=== PATIENT | male | born 1985 | race Two or more races ===

== ENCOUNTER 2017-04-24 16:08 | Inpatient (IN) | payer OTHER ==
[2017-04-24 17:04] VITALS: BMI 22.7
--- NOTE | 2017-04-24 20:47 | HP ---
COWS - Scale Resting Pulse: 0= [place] 80 or Below Sweatin= Chills/Flushing Restless Observation: 5= Unable to Sit Still Pupil Size: 1= Pupils >than Normal Bone or Joint Aches: 4=Acute Joint/Muscle Pain Runny Nose/ Eye Tearin= Runny Nose/Eyes GI Upset > 30mins: 2= Nausea/Diarrhea Tremor Observation: 4= Gross Tremor/Twitching Yawning Observation: 1= 1-2x During Session Anxiety or Irritability: 2=Irritable/Anxious Goose Flesh Skin: 0=Smooth Skin COWS Score: 22 CIWA Score - CIWA Score Nausea/Vomitin Muscle Tremors: 4-Moderate,w/Arms Extend Anxiety: 4-Mod. Anxious/Guarded Agitation: 4-Moderately Restless Paroxysmal Sweats: 3 Orientation: 3-Disoriented Date>2 days Tacttile Disturbances: 1-Very Mild Itch/Numbness Auditory Disturbances: 1-Very Mild Visual Disturbances: 1-Very Mild Sensitivity Headache: 2-Mild CIWA-Ar Total Score: 26 Admission [facility] - HPI Chief Complaint: seeking detox txment for withdrawal sx's Allergies/Adverse Reactions: Allergies Allergy/AdvReac Type Severity Reaction Status Date / Time No Known Allergies Allergy Verified 04/24/17 20:41 History of Present Illness: 31 y.o. MALE W/ EXTENSIVE HX/O OPIOID, ESTRELLA, AND ALCOHOL DEPENDENCE ADMITTED TO DETOX TXMENT. CLIENT IS SELF REFERRED. REPORTS LONGEST CLEAN TIME 8 MONTHS WHILE ON SBX MGMT/ Exam Limitations: No Limitations - Ebola screening Have you traveled outside of the country in the last 21 days: No Have you had contact with anyone from an Ebola affected area: No Have you been sick,other than usual withdrawal symptoms: No Do you have a fever: No - Review of Systems Constitutional: Chills, Loss of Appetite, Malaise, Night Sweats, Unintentional Wgt. Loss, Other (YAWNING) EENT: reports: Tearing, Nose Congestion, Dental Problems (MISSING TEETH), Other (RUNNY NOSE) Respiratory: reports: No Symptoms reported Cardiac: reports: No Symptoms Reported GI: reports: Nausea, Poor Appetite : reports: No Symptoms Reported Musculoskeletal: reports: Back Pain, Joint Pain Integumentary: reports: No Symptoms Reported Neuro: reports: No Symptoms reported Endocrine: reports: No Symptoms Reported Hematology: reports: No Symptoms Reported Psychiatric: reports: Anxious Other Systems: Reviewed and Negative Patient History - Patient Medical History Hx Anemia: No Hx Asthma: No Hx Chronic Obstructive Pulmonary Disease (COPD): No Hx Cancer: No Hx Cardiac Disorders: No Hx Congestive Heart Failure: No Hx Hypertension: No Hx Hypercholesterolemia: No Hx Pacemaker: No HX Cerebrovascular Accident: No Hx Seizures: No Hx Dementia: No Hx Diabetes: No Hx Gastrointestinal Disorders: No Hx Liver Disease: No Hx Genitourinary Disorders: No Hx Sexually Transmitted Disorders: No Hx Renal Disease (ESRD): No Hx Thyroid Disease: No Hx Human Immunodeficiency Virus (HIV): No Hx Hepatitis C: Yes (NO TXMENT) Hx Depression: No Hx Suicide Attempt: No Hx Bipolar Disorder: No Hx Schizophrenia: No Other Medical History: DENIES - Patient Surgical History Past Surgical History: No - PPD History Previous Implant?: Yes Documented Results: Negative w/o proof Implanted On Prior [facility] Admission?: No PPD to be Administered?: Yes - Smoking Cessation Smoking history: Current every day smoker Have you smoked in the past 12 months: Yes Aproximately how many cigarettes per day: 15 Cigars Per Day: 0 Hx Chewing Tobacco Use: No Initiated information on smoking cessation: Yes - Substance & Tx. History Hx Alcohol Use: Yes Hx Substance Use: Yes Substance Use Type: Alcohol, Heroin, Tranquilizers (XANAX) Hx Substance Use Treatment: Yes ([facility]) - Substances Abused COGNAC Route: Oral Frequency: 3-6 times per week Amount used: 8 SHOTS Age of first use: 12 Date of Last Use: 04/23/17 HEROIN Route: Injection Frequency: Daily Amount used: 12 BAGS Age of first use: 17 Date of Last Use: 04/23/17 XANAX Route: Oral Frequency: Daily Amount used: 6MG Age of first use: 29 Date of Last Use: 04/23/17 COCAINE Route: Injection Frequency: 3-6 times per week Amount used: $20 Age of first use: 14 Date of Last Use: 04/23/17 Family Disease History - Family Disease History Family Disease History: Other: Father (ALCOHOLISM) Admission Physical Exam [facility] - Vital Signs Vital Signs: Vital Signs - 24 hr 04/24/17 17:00 Temperature 98.8 F Pulse Rate 60 Respiratory 18 Rate Blood Pressure 130/73 - Physical General Appearance: Yes: Appropriately Dressed, Mild Distress, Tremorous, Anxious, Other (YAWNING) HEENTM: Yes: EOMI, Normocephalic, Normal Voice, Pharynx Normal, Other (RUNNY NOSE WATERY EYES) Respiratory: Yes: Chest Non-Tender, Lungs Clear, Normal Breath Sounds, No Respiratory Distress, No Accessory Muscle Use Neck: Yes: No masses,lesions,Nodules, Supple, Trachea in good position Breast: Yes: Breast Exam Deferred Cardiology: Yes: Regular Rhythm, Regular Rate, S1, S2 Abdominal: Yes: Normal Bowel Sounds, Non Tender, Soft Genitourinary: Yes: Within Normal Limits Back: Yes: Normal Inspection Musculoskeletal: Yes: full range of Motion, Gait Steady Extremities: Yes: Normal Range of Motion, Non-Tender, Tremors Neurological: Yes: Alert, Motor Strength 5/5 Integumentary: Yes: Normal Color, Dry, Warm, Track [place] Lymphatic: Yes: Within Normal Limits - Diagnostic (1) Alcohol dependence with uncomplicated withdrawal Current Visit: Yes Status: Acute (2) Opioid dependence with withdrawal Current Visit: Yes Status: Acute (3) Cocaine dependence, uncomplicated Current Visit: Yes Status: Acute (4) Nicotine dependence Current Visit: Yes Status: Acute (5) Hep C w/o coma, chronic Current Visit: Yes Status: Acute Cleared for Admission [facility] - Detox or Rehab [facility] Level of Care: Medically Managed Detox Regimen/Protocol: Methadone/Valium [facility] Breath Alcohol Content Breath Alcohol Content: 0 Urine Drug Screen - Results Drug Screen Negative: No Urine Drug Screen Results: EYAL-Cocaine, OPI-Opiates, BZO-Benzodiazepines
[2017-04-24] MEDS ORDERED: MAGNESIUM CITRATE 300 ML BOTTLE PO PRN (20:57)
[2017-04-24] MEDS ORDERED: guaiFENesin/D-METHORPHAN HB 10 ML UNIT-DOSE CUPS PO PRN (20:57)
[2017-04-24] MEDS ORDERED: METHADONE HCL 10 MG TABLET (FOR DETOX USE ONLY) PO ONE ×2 (20:57→23:00)
[2017-04-24] MEDS ORDERED: MAGNESIUM HYDROX 2400MG/30ML ORAL SUSPENSION 30 ML CUP PO PRN (20:57)
[2017-04-24] MEDS ORDERED: P-EPHED 60MG/TRIPROLIDI 2.5MG TABLET PO PRN (20:57)
[2017-04-24] MEDS ORDERED: MAG HYDROX/AL HYDROX/SIMETH 30 ML UNIT-DOSE CUP PO PRN (20:57)
[2017-04-24] MEDS ORDERED: LOPERAMIDE HCL 2 MG CAPSULE PO PRN (20:57)
[2017-04-24] MEDS ORDERED: IBUPROFEN 400 MG TABLET (FP) PO PRN (20:57)
[2017-04-24] MEDS ORDERED: diazePAM 5 MG TABLET PO ONE (20:57)
[2017-04-24] MEDS ORDERED: MENTHOL/PHENOL 1 EACH UD MM PRN (20:57)
[2017-04-24] MEDS ORDERED: ACETAMINOPHEN 325 MG TABLET (FP) PO PRN (20:57)
[2017-04-24] MEDS: NICOTINE 21 MG/24 HOURS TOPICAL PATCH TD SCH (22:00)
[2017-04-24] MEDS: THIAMINE HCL 100 MG TABLET (FP) PO SCH (22:56)
[2017-04-24] MEDS: diazePAM 5 MG TABLET PO SCH (22:57)
[2017-04-24 23:08] LABS: URINE APPEARANCE CLEAR; URINE BILIRUBIN NEGATIVE (NEGATIVE); URINE BLOOD NEGATIVE (NEGATIVE); URINE COLOR STRAW; URINE GLUCOSE (UA) NEGATIVE (NEGATIVE); URINE KETONE NEGATIVE (NEGATIVE); URINE NITRITE NEGATIVE (NEGATIVE); URINE PROTEIN NEGATIVE (NEGATIVE); URINE UROBILINOGEN NEGATIVE mg/dL (0.2-1.0)
[2017-04-25] MEDS: diazePAM 5 MG TABLET PO SCH ×3 (05:37→22:09)
[2017-04-25 08:44] LABS: URINE LEUK ESTERASE Negative (NEGATIVE)
[2017-04-25] MEDS ORDERED: METHADONE HCL 10 MG TABLET (FOR DETOX USE ONLY) PO SCH (10:00)
[2017-04-25 10:17] LABS: MCH 28.5 pg (25.7-33.7); MCHC 32.3 g/dl (32.0-35.9); MEAN CELL VOLUME 88.3 fl (80-96); MEAN PLT VOLUME 8.5 fl (7.5-11.1); PLATELET COUNT 246 K/MM3 (134-434); RDW 14.9 % (11.9-15.9); WHITE BLOOD COUNT 8.2 K/mm3 (4.0-10.0)
[2017-04-25 10:27] LABS: ALBUMIN 3.4 g/dl (3.4-5.0); ANION GAP 7 (8-16); CALCIUM 8.6 mg/dL (8.5-10.1); CO2 27 mmol/L (21-32); GLUCOSE,RANDOM 109 mg/dL (74-106); SGOT/AST 17 U/L (15-37); SGPT/ALT 30 U/L (12-78)
[2017-04-25] MEDS: PRENATAL VITAMINS W/ FOLIC ACID TABLET (FP) PO SCH (10:27)
[2017-04-25] MEDS: NICOTINE 21 MG/24 HOURS TOPICAL PATCH TD SCH (10:27)
[2017-04-25] MEDS: NICOTINE POLACRILEX 2 MG GUM BUC PRN ×2 (10:28→17:25)
[2017-04-25] MEDS: diazePAM 5 MG TABLET PO PRN ×2 (10:29→17:23)
[2017-04-25 10:30] LABS: ALK PHOS 50 U/L (45-117); BILIRUBIN,TOTAL 0.4 mg/dL (0.2-1.0); TOT PROT 6.9 g/dl (6.4-8.2)
--- NOTE | 2017-04-25 11:33 | PN ---
[facility] CIWA - CIWA Score Nausea/Vomitin-No Nausea/No Vomiting Muscle Tremors: 4-Moderate,w/Arms Extend Anxiety: 4-Mod. Anxious/Guarded Agitation: 4-Moderately Restless Paroxysmal Sweats: 1-Minimal Palms Moist Orientation: 0-Oriented Tacttile Disturbances: 3-Moderate Itch/Numb/Burn Auditory Disturbances: 0-None Visual Disturbances: 0-None Headache: 0-None Present CIWA-Ar Total Score: 16 [facility] COWS - Scale Resting Pulse: 1= [place] 81-100 Sweatin= Chills/Flushing Restless Observation: 3= Extraneous Movement Pupil Size: 0= Normal to Room Light Bone or Joint Aches: 4=Acute Joint/Muscle Pain Runny Nose/ Eye Tearin= Nasal Congestion GI Upset > 30mins: 1= Stomach Cramp Tremor Observation of Outstretched Hands: 1= Tremor [place], Not Seen Yawning Observation: 1= 1-2x During Session Anxiety or Irritability: 2=Irritable/Anxious Goose Flesh Skin: 0=Smooth Skin COWS Score: 15 [facility] Progress Note (SOAP) Subjective: ANXIETY, SWEATS,IRRITABILITY, Objective: 04/25/17 11:33 Vital Signs Temperature 95.3 F L 04/25/17 09:20 Pulse Rate 93 H 04/25/17 09:20 Respiratory Rate 20 04/25/17 09:20 Blood Pressure 117/77 04/25/17 09:20 O2 Sat by Pulse Oximetry (%) Laboratory Last Values WBC 8.2 K/mm3 (4.0-10.0) 04/25/17 07:00 RBC 4.30 M/mm3 (4.00-5.60) 04/25/17 07:00 Hgb 12.3 GM/dL (11.7-16.9) 04/25/17 07:00 Hct 37.9 % (35.4-49) 04/25/17 07:00 MCV 88.3 fl (80-96) 04/25/17 07:00 MCH 28.5 pg (25.7-33.7) 04/25/17 07:00 MCHC 32.3 g/dl (32.0-35.9) 04/25/17 07:00 RDW 14.9 % (11.9-15.9) 04/25/17 07:00 Plt Count 246 K/MM3 (134-434) 04/25/17 07:00 MPV 8.5 fl (7.5-11.1) 04/25/17 07:00 Sodium 140 mmol/L (136-145) 04/25/17 07:00 Potassium 4.0 mmol/L (3.5-5.1) 04/25/17 07:00 Chloride 106 mmol/L (98-107) 04/25/17 07:00 Carbon Dioxide 27 mmol/L (21-32) 04/25/17 07:00 Anion Gap 7 (8-16) L 04/25/17 07:00 BUN 15 mg/dL (7-18) 04/25/17 07:00 Creatinine 1.0 mg/dL (0.7-1.3) 04/25/17 07:00 Creat Clearance w eGFR > 60 (>60) 04/25/17 07:00 Random Glucose 109 mg/dL (74-106) H 04/25/17 07:00 Calcium 8.6 mg/dL (8.5-10.1) 04/25/17 07:00 Total Bilirubin 0.4 mg/dL (0.2-1.0) 04/25/17 07:00 AST 17 U/L (15-37) 04/25/17 07:00 ALT 30 U/L (12-78) 04/25/17 07:00 Alkaline Phosphatase 50 U/L (45-117) 04/25/17 07:00 Total Protein 6.9 g/dl (6.4-8.2) 04/25/17 07:00 Albumin 3.4 g/dl (3.4-5.0) 04/25/17 07:00 Urine Color Straw 04/24/17 22:00 Urine Appearance Clear 04/24/17 22:00 Urine pH 8.0 (5.0-8.0) 04/24/17 22:00 Ur Specific [place] 1.015 (1.005-1.025) 04/24/17 22:00 Urine Protein Negative (NEGATIVE) 04/24/17 22:00 Urine Glucose (UA) Negative (NEGATIVE) 04/24/17 22:00 Urine Ketones Negative (NEGATIVE) 04/24/17 22:00 Urine Blood Negative (NEGATIVE) 04/24/17 22:00 Urine Nitrite Negative (NEGATIVE) 04/24/17 22:00 Urine Bilirubin Negative (NEGATIVE) 04/24/17 22:00 Urine Urobilinogen Negative mg/dL (0.2-1.0) 04/24/17 22:00 Ur Leukocyte Esterase Negative (NEGATIVE) 04/24/17 22:00 RPR Titer Nonreactive (NONREACTIVE) 04/25/17 07:00 Assessment: 04/25/17 11:33 WITHDRAWAL SX Plan: CONTINUE DETOX
--- NOTE | 2017-04-25 12:30 | CONSULT ---
[facility] Psychiatric Consult - Data Date of interview: 04/25/17 Admission source: [facility] Identifying data: First admission to [facility] for this 31 y/o male seeking detox treatment on for alcohol,cocaine,heroin,marihuana and xanax dependence.Patient is single,a father of two,domiciled,unemployed and supported on food stamps. Substance Abuse History: Discussed in this session.patient confirmed these addictions. Smoking Cessation. Smoking history: Current every day smoker. Have you smoked in the past 12 months: Yes. Aproximately how many cigarettes per day: 15. Cigars Per Day: 0. Hx Chewing Tobacco Use: No. Initiated information on smoking cessation: Yes. - Substance & Tx. History. Hx Alcohol Use: Yes. Hx Substance Use: Yes. Substance Use Type: Alcohol, Heroin, Tranquilizers (XANAX). Hx Substance Use Treatment: Yes ([facility]). - Substances Abused. COGNAC. Route: Oral. Frequency: 3-6 times per week. Amount used: 8 SHOTS. Age of first use: 12. Date of Last Use: 04/23/17. HEROIN. Route: Injection. Frequency: Daily. Amount used: 12 BAGS. Age of first use: 17. Date of Last Use: 04/23/17. XANAX. Route: Oral. Frequency : Daily. Amount used: 6MG. Age of first use: 29. Date of Last Use: 04/23/17. COCAINE. Route: Injection. Frequency: 3-6 times per week. Amount used: $ 20. Age of first use: 14. Date of Last Use: 04/23/17 Medical History: Hepatitis C. Psychiatric History: Patient denies. Physical/Sexual Abuse/Trauma History: Patient denies. Additional Comment: Urine Drug Screen Results: EYAL-Cocaine, OPI-Opiates, BZO- Benzodiazepines.Noted. Mental Status Exam - Mental Status Exam Alert and Oriented to: Time, Place, Person Cognitive Function: Good Patient Appearance: Well Groomed Mood: Withdrawn Affect: Normal Range Patient Behavior: Fatigued, Cooperative Speech Pattern: Clear Voice Loudness: Normal Thought Process: Goal Oriented Thought Disorder: Not Present Hallucinations: Denies Suicidal Ideation: Denies Homicidal Ideation: Denies Insight/Judgement: Poor Sleep: Well Appetite: Good Muscle strength/Tone: Normal Gait/Station: Normal Psychiatric Findings - Problem List ([place] 1, 2,3) (1) Alcohol dependence with uncomplicated withdrawal Current Visit: Yes Status: Acute (2) Cocaine dependence, uncomplicated Current Visit: Yes Status: Acute (3) Opioid dependence with withdrawal Current Visit: Yes Status: Acute (4) Nicotine dependence Current Visit: Yes Status: Acute Qualifiers: Nicotine product type: cigarettes Substance use status: in withdrawal Qualified Code(s): F17.213 - Nicotine dependence, cigarettes, with withdrawal; F17.213 - Nicotine dependence, cigarettes, with withdrawal (5) Hep C w/o coma, chronic Current Visit: Yes Status: Acute - Initial Treatment Plan Initial Treatment Plan: Psychoeducation.Detoxification.Observation.
[2017-04-25 14:21] LABS: HIV 1 & 2 AB NEGATIVE; HIV 1 AGp24 NEGATIVE
[2017-04-25] MEDS: THIAMINE HCL 100 MG TABLET (FP) PO SCH (22:09)
[2017-04-25] MEDS: diphenhydrAMINE HCL 50 MG CAPSULE PO PRN (22:09)
[2017-04-26] MEDS: diazePAM 5 MG TABLET PO PRN ×3 (07:31→18:45)
[2017-04-26] MEDS: PRENATAL VITAMINS W/ FOLIC ACID TABLET (FP) PO SCH (10:26)
[2017-04-26] MEDS: METHADONE HCL 5 MG TABLET (FOR DETOX USE ONLY) PO SCH (10:26)
[2017-04-26] MEDS: diazePAM 5 MG TABLET PO SCH ×2 (10:26→22:08)
[2017-04-26] MEDS: NICOTINE 21 MG/24 HOURS TOPICAL PATCH TD SCH (10:27)
[2017-04-26] MEDS: NICOTINE POLACRILEX 2 MG GUM BUC PRN ×3 (10:28→17:28)
--- NOTE | 2017-04-26 10:34 | PN ---
[facility] CIWA - CIWA Score Nausea/Vomitin-No Nausea/No Vomiting Muscle Tremors: 4-Moderate,w/Arms Extend Anxiety: 4-Mod. Anxious/Guarded Agitation: 4-Moderately Restless Paroxysmal Sweats: 1-Minimal Palms Moist Orientation: 0-Oriented Tacttile Disturbances: 3-Moderate Itch/Numb/Burn Auditory Disturbances: 0-None Visual Disturbances: 0-None Headache: 0-None Present CIWA-Ar Total Score: 16 S COWS - Scale Resting Pulse: 1= [place] 81-100 Sweatin= Chills/Flushing Restless Observation: 3= Extraneous Movement Pupil Size: 0= Normal to Room Light Bone or Joint Aches: 4=Acute Joint/Muscle Pain Runny Nose/ Eye Tearin= Nasal Congestion GI Upset > 30mins: 0= None Tremor Observation of Outstretched Hands: 1= Tremor [place], Not Seen Yawning Observation: 1= 1-2x During Session Anxiety or Irritability: 2=Irritable/Anxious Goose Flesh Skin: 0=Smooth Skin COWS Score: 14 [facility] Progress Note (SOAP) Subjective: ANXIETY,SWEATS/CHILLS,IRRITABILITY,FATIGUE. Objective: 04/26/17 10:34 Laboratory Last Values WBC 8.2 K/mm3 (4.0-10.0) 04/25/17 07:00 RBC 4.30 M/mm3 (4.00-5.60) 04/25/17 07:00 Hgb 12.3 GM/dL (11.7-16.9) 04/25/17 07:00 Hct 37.9 % (35.4-49) 04/25/17 07:00 MCV 88.3 fl (80-96) 04/25/17 07:00 MCH 28.5 pg (25.7-33.7) 04/25/17 07:00 MCHC 32.3 g/dl (32.0-35.9) 04/25/17 07:00 RDW 14.9 % (11.9-15.9) 04/25/17 07:00 Plt Count 246 K/MM3 (134-434) 04/25/17 07:00 MPV 8.5 fl (7.5-11.1) 04/25/17 07:00 Sodium 140 mmol/L (136-145) 04/25/17 07:00 Potassium 4.0 mmol/L (3.5-5.1) 04/25/17 07:00 Chloride 106 mmol/L (98-107) 04/25/17 07:00 Carbon Dioxide 27 mmol/L (21-32) 04/25/17 07:00 Anion Gap 7 (8-16) L 04/25/17 07:00 BUN 15 mg/dL (7-18) 04/25/17 07:00 Creatinine 1.0 mg/dL (0.7-1.3) 04/25/17 07:00 Creat Clearance w eGFR > 60 (>60) 04/25/17 07:00 Random Glucose 109 mg/dL (74-106) H 04/25/17 07:00 Calcium 8.6 mg/dL (8.5-10.1) 04/25/17 07:00 Total Bilirubin 0.4 mg/dL (0.2-1.0) 04/25/17 07:00 AST 17 U/L (15-37) 04/25/17 07:00 ALT 30 U/L (12-78) 04/25/17 07:00 Alkaline Phosphatase 50 U/L (45-117) 04/25/17 07:00 Total Protein 6.9 g/dl (6.4-8.2) 04/25/17 07:00 Albumin 3.4 g/dl (3.4-5.0) 04/25/17 07:00 Urine Color Straw 04/24/17 22:00 Urine Appearance Clear 04/24/17 22:00 Urine pH 8.0 (5.0-8.0) 04/24/17 22:00 Ur Specific [place] 1.015 (1.005-1.025) 04/24/17 22:00 Urine Protein Negative (NEGATIVE) 04/24/17 22:00 Urine Glucose (UA) Negative (NEGATIVE) 04/24/17 22:00 Urine Ketones Negative (NEGATIVE) 04/24/17 22:00 Urine Blood Negative (NEGATIVE) 04/24/17 22:00 Urine Nitrite Negative (NEGATIVE) 04/24/17 22:00 Urine Bilirubin Negative (NEGATIVE) 04/24/17 22:00 Urine Urobilinogen Negative mg/dL (0.2-1.0) 04/24/17 22:00 Ur Leukocyte Esterase Negative (NEGATIVE) 04/24/17 22:00 RPR Titer Nonreactive (NONREACTIVE) 04/25/17 07:00 HIV 1&2 Antibody Screen Negative 04/25/17 07:00 HIV P24 Antigen Negative 04/25/17 07:00 Assessment: 04/26/17 10:34 WITHDRAWAL SX Plan: CONTINUE DETOX
--- NOTE | 2017-04-26 13:08 | EKG ---
Test Reason : Blood Pressure : / mmHG Vent. Rate : 048 BPM Atrial Rate : 048 BPM P-R Int : 118 ms QRS Dur : 086 ms QT Int : 424 ms P-R-T Axes : -12 082 034 degrees QTc Int : 378 ms SINUS BRADYCARDIA OTHERWISE NORMAL ECG NO PREVIOUS ECGS AVAILABLE Confirmed by ROSS WOODS MD ([id number]) on 04/26/2017 1:07:47 PM Referred By: Confirmed By:ROSS WOODS MD
[2017-04-26] MEDS: diphenhydrAMINE HCL 50 MG CAPSULE PO PRN (22:09)
[2017-04-26] MEDS: THIAMINE HCL 100 MG TABLET (FP) PO SCH (22:09)
[2017-04-27] MEDS: diazePAM 5 MG TABLET PO PRN ×3 (09:01→18:20)
[2017-04-27] MEDS: PRENATAL VITAMINS W/ FOLIC ACID TABLET (FP) PO SCH (10:36)
[2017-04-27] MEDS: NICOTINE 21 MG/24 HOURS TOPICAL PATCH TD SCH (10:36)
[2017-04-27] MEDS: METHADONE HCL 5 MG TABLET (FOR DETOX USE ONLY) PO SCH (10:36)
[2017-04-27] MEDS: diazePAM 5 MG TABLET PO SCH ×2 (10:36→22:05)
[2017-04-27] MEDS: NICOTINE POLACRILEX 2 MG GUM BUC PRN ×3 (10:37→22:07)
--- NOTE | 2017-04-27 11:41 | PN ---
[facility] Progress Note (SOAP) Subjective: ANXIETY,TREMORS,SWEATS, INTERMITTENT SLEEP. Objective: 04/27/17 11:40 Vital Signs Temperature 96.5 F L 04/27/17 11:35 Pulse Rate 46 L 04/27/17 11:35 Respiratory Rate 18 04/27/17 11:35 Blood Pressure 118/72 04/27/17 11:35 O2 Sat by Pulse Oximetry (%) Laboratory Last Values WBC 8.2 K/mm3 (4.0-10.0) 04/25/17 07:00 RBC 4.30 M/mm3 (4.00-5.60) 04/25/17 07:00 Hgb 12.3 GM/dL (11.7-16.9) 04/25/17 07:00 Hct 37.9 % (35.4-49) 04/25/17 07:00 MCV 88.3 fl (80-96) 04/25/17 07:00 MCH 28.5 pg (25.7-33.7) 04/25/17 07:00 MCHC 32.3 g/dl (32.0-35.9) 04/25/17 07:00 RDW 14.9 % (11.9-15.9) 04/25/17 07:00 Plt Count 246 K/MM3 (134-434) 04/25/17 07:00 MPV 8.5 fl (7.5-11.1) 04/25/17 07:00 Sodium 140 mmol/L (136-145) 04/25/17 07:00 Potassium 4.0 mmol/L (3.5-5.1) 04/25/17 07:00 Chloride 106 mmol/L (98-107) 04/25/17 07:00 Carbon Dioxide 27 mmol/L (21-32) 04/25/17 07:00 Anion Gap 7 (8-16) L 04/25/17 07:00 BUN 15 mg/dL (7-18) 04/25/17 07:00 Creatinine 1.0 mg/dL (0.7-1.3) 04/25/17 07:00 Creat Clearance w eGFR > 60 (>60) 04/25/17 07:00 Random Glucose 109 mg/dL (74-106) H 04/25/17 07:00 Calcium 8.6 mg/dL (8.5-10.1) 04/25/17 07:00 Total Bilirubin 0.4 mg/dL (0.2-1.0) 04/25/17 07:00 AST 17 U/L (15-37) 04/25/17 07:00 ALT 30 U/L (12-78) 04/25/17 07:00 Alkaline Phosphatase 50 U/L (45-117) 04/25/17 07:00 Total Protein 6.9 g/dl (6.4-8.2) 04/25/17 07:00 Albumin 3.4 g/dl (3.4-5.0) 04/25/17 07:00 Urine Color Straw 04/24/17 22:00 Urine Appearance Clear 04/24/17 22:00 Urine pH 8.0 (5.0-8.0) 04/24/17 22:00 Ur Specific [place] 1.015 (1.005-1.025) 04/24/17 22:00 Urine Protein Negative (NEGATIVE) 04/24/17 22:00 Urine Glucose (UA) Negative (NEGATIVE) 04/24/17 22:00 Urine Ketones Negative (NEGATIVE) 04/24/17 22:00 Urine Blood Negative (NEGATIVE) 04/24/17 22:00 Urine Nitrite Negative (NEGATIVE) 04/24/17 22:00 Urine Bilirubin Negative (NEGATIVE) 04/24/17 22:00 Urine Urobilinogen Negative mg/dL (0.2-1.0) 04/24/17 22:00 Ur Leukocyte Esterase Negative (NEGATIVE) 04/24/17 22:00 RPR Titer Nonreactive (NONREACTIVE) 04/25/17 07:00 HIV 1&2 Antibody Screen Negative 04/25/17 07:00 HIV P24 Antigen Negative 04/25/17 07:00 Assessment: 04/27/17 11:40 WITHDRAWAL SX Plan: CONTINUE DETOX
[2017-04-27] MEDS: THIAMINE HCL 100 MG TABLET (FP) PO SCH (22:04)
[2017-04-27] MEDS: diphenhydrAMINE HCL 50 MG CAPSULE PO PRN (22:05)
[2017-04-28 09:31] VITALS: BP 128/76; PULSE 55; TEMP 96
[2017-04-28] MEDS ORDERED: diazePAM 5 MG TABLET PO SCH (10:00)
[2017-04-28] MEDS ORDERED: METHADONE HCL 10 MG TABLET (FOR DETOX USE ONLY) PO SCH (10:00)
[2017-04-28] MEDS: NICOTINE 21 MG/24 HOURS TOPICAL PATCH TD SCH (10:13)
[2017-04-28] MEDS: PRENATAL VITAMINS W/ FOLIC ACID TABLET (FP) PO SCH (10:14)
[2017-04-28] MEDS: NICOTINE POLACRILEX 2 MG GUM BUC PRN (10:15)
--- NOTE | 2017-04-28 13:11 | DS ---
[facility] Detox Discharge Summary Admission Date: 04/24/17 Discharge Date: 04/28/17 - History Present History: Alcohol Dependence, Cocaine Dependence, Opioid Dependence Pertinent Past History: Hep C - Physical Exam Results Vital Signs: Vital Signs Temperature 96 F L 04/28/17 09:30 Pulse Rate 55 L 04/28/17 09:30 Respiratory Rate 18 04/28/17 09:30 Blood Pressure 128/76 04/28/17 09:30 O2 Sat by Pulse Oximetry (%) Pertinent Admission Physical Exam Findings: Withdrawal sx. Laboratory Tests 04/24/17 04/25/17 04/25/17 22:00 07:00 07:00 WBC 8.2 RBC 4.30 Hgb 12.3 Hct 37.9 MCV 88.3 MCH 28.5 MCHC 32.3 RDW 14.9 Plt Count 246 MPV 8.5 Sodium 140 Potassium 4.0 Chloride 106 Carbon Dioxide 27 Anion Gap 7 L BUN 15 Creatinine 1.0 Creat Clearance w eGFR > 60 Random Glucose 109 H Calcium 8.6 Total Bilirubin 0.4 AST 17 ALT 30 Alkaline Phosphatase 50 Total Protein 6.9 Albumin 3.4 Urine Color Straw Urine Appearance Clear Urine pH 8.0 Ur Specific [place] 1.015 Urine Protein Negative Urine Glucose (UA) Negative Urine Ketones Negative Urine Blood Negative Urine Nitrite Negative Urine Bilirubin Negative Urine Urobilinogen Negative Ur Leukocyte Esterase Negative RPR Titer HIV 1&2 Antibody Screen HIV P24 Antigen 04/25/17 04/25/17 07:00 07:00 WBC RBC Hgb Hct MCV MCH MCHC RDW Plt Count MPV Sodium Potassium Chloride Carbon Dioxide Anion Gap BUN Creatinine Creat Clearance w eGFR Random Glucose Calcium Total Bilirubin AST ALT Alkaline Phosphatase Total Protein Albumin Urine Color Urine Appearance Urine pH Ur Specific [place] Urine Protein Urine Glucose (UA) Urine Ketones Urine Blood Urine Nitrite Urine Bilirubin Urine Urobilinogen Ur Leukocyte Esterase RPR Titer Nonreactive HIV 1&2 Antibody Screen Negative HIV P24 Antigen Negative labs noted - Treatment Patient has Accepted a Rehab Referral to: Self help group - Medication Discharge Medications: Ambulatory Orders NK [No Known Home Medication] 04/24/17 - Diagnosis (1) Alcohol dependence with uncomplicated withdrawal Status: Acute (2) Cocaine dependence, uncomplicated Status: Acute (3) Hep C w/o coma, chronic Status: Acute (4) Nicotine dependence Status: Acute Qualifiers: Nicotine product type: cigarettes Substance use status: in withdrawal Qualified Code(s): F17.213 - Nicotine dependence, cigarettes, with withdrawal; F17.213 - Nicotine dependence, cigarettes, with withdrawal (5) Opioid dependence with withdrawal Status: Acute - AMA Did Patient Leave Against Medical Advice: No (non-compliance with unit's rule, fighting)
[2017-04-29] MEDS ORDERED: METHADONE HCL 5 MG TABLET (FOR DETOX USE ONLY) PO SCH (06:00)
== END 2017-04-28 10:38 | disposition home or self-care (01) | DRG 773 ==
LOC: YASAS 16:08 → Y3N 21:21
PROVIDERS: ADMIT Internal Medicine; ATTEND Internal Medicine
PROC: HZ2ZZZZ Detoxification Services for Substance Abuse Treatment (ICD-10-PCS; principal; 2017-04-24)
DX: F11.23 Opioid dependence with withdrawal (principal); F10.230 Alcohol dependence with withdrawal, uncomplicated; F14.20 Cocaine dependence, uncomplicated; F17.213 Nicotine dependence, cigarettes, with withdrawal; B18.2 Chronic viral hepatitis C
CPT/HCPCS: 36415; 80053; 81003; 85027; 86593; 87389; 93005; 93010

== ENCOUNTER 2025-02-05 11:04 | Inpatient (IN) | payer OTHER ==
[2025-02-05 11:26] VITALS: BMI 22.8
[2025-02-05] MEDS ORDERED: NALOXONE (NARCAN) HCL 4 MG/0.1 ML SPRAY NS PRN (12:14)
[2025-02-05] MEDS ORDERED: MAG HYDROX/AL HYDROX/SIMETH 30 ML UNIT-DOSE CUP PO PRN (12:14)
[2025-02-05] MEDS ORDERED: IBUPROFEN 400 MG TABLET (FP) PO PRN (12:14)
[2025-02-05] MEDS ORDERED: ACETAMINOPHEN 325 MG TABLET (FP) PO PRN (12:14)
[2025-02-05] MEDS ORDERED: guaiFENesin 600 MG TABLET.ER (FP) PO PRN (12:14)
[2025-02-05] MEDS ORDERED: ONDANSETRON *ODT* 4 MG TABLET SL PRN (12:14)
[2025-02-05] MEDS ORDERED: POLYETHYLENE GLYCOL (HEALTHYLAX) 3350 17 GM PACKET PO PRN (12:14)
[2025-02-05] MEDS ORDERED: MAGNESIUM HYDROX 2400MG/30ML ORAL SUSPENSION 30 ML CUP PO PRN (12:14)
[2025-02-05] MEDS ORDERED: DICYCLOMINE HCL 10 MG CAPSULE PO PRN (12:14)
[2025-02-05] MEDS ORDERED: BENZONATATE 200 MG CAPSULE PO PRN (12:14)
[2025-02-05] MEDS ORDERED: hydrOXYzine PAMOATE 25 MG CAPSULE (FP) PO PRN (12:14)
[2025-02-05] MEDS ORDERED: BISMUTH SUBSALICYLATE 524 MG/30 ML PO PRN (12:14)
[2025-02-05] MEDS ORDERED: LOPERAMIDE HCL 2 MG CAPSULE PO PRN (12:14)
[2025-02-05] MEDS ORDERED: BENZOCAINE/MENTHOL (CHLORASEPTIC ) LOZENGE MM PRN (12:14)
[2025-02-05] MEDS ORDERED: PRENATAL VITAMINS W/ FOLIC ACID TABLET (FP) PO ONE (12:52)
[2025-02-05] MEDS ORDERED: BUPRENORPHINE/NALOXONE 0.5 MG/0.125 MG FILM ONE (12:52)
[2025-02-05] MEDS: PRENATAL VITAMINS W/ FOLIC ACID TABLET (FP) PO SCH (12:57)
[2025-02-05] MEDS: BUPRENORPHINE/NALOXONE 0.5 MG/0.125 MG FILM SL ONE ×2 (12:59→22:28)
[2025-02-05] MEDS: THIAMINE 100 MG TABLET PO SCH (22:27)
[2025-02-05] MEDS: MELATONIN 5 MG TABLETS PO SCH (22:27)
[2025-02-06] MEDS: BUPRENORPHINE/NALOXONE 0.5 MG/0.125 MG FILM SL SCH (10:48)
[2025-02-06 13:17] LABS: MCHC 30.4 g/dl (32.3-36.5); MEAN CELL VOLUME 90.1 fl (79.0-92.2); MEAN PLT VOLUME 11.4 fl (9.4-12.4); RDW 14.3 % (12.0-15.6)
[2025-02-06 13:50] LABS: CO2 33.0 mmol/L (21-32); GLUCOSE,RANDOM 86.0 mg/dL (74-106)
[2025-02-06 13:54] LABS: CREATININE 1.2 mg/dL (0.55-1.3); SGOT/AST 23.0 U/L (15-37); SGPT/ALT 37.0 U/L (13-61)
[2025-02-06 13:55] LABS: TOT PROT 8.2 g/dl (6.4-8.2)
[2025-02-06 13:56] LABS: ALK PHOS 65.0 U/L (45-117)
[2025-02-07] MEDS ORDERED: BUPRENORPHINE/NALOXONE 2 MG/0.5 MG FILM PACKET SL SCH (10:00)
[2025-02-07] MEDS: BUPRENORPHINE HCL 150 MCG, BUPRENORPHINE HCL 75 MCG BC ONE (14:38)
[2025-02-07] MEDS: METHOCARBAMOL 500 MG TABLET PO PRN (20:06)
[2025-02-08] MEDS: BUPRENORPHINE HCL 150 MCG, BUPRENORPHINE HCL 75 MCG BC SCH (06:22)
[2025-02-08] MEDS ORDERED: BUPRENORPHINE/NALOXONE 4 MG/1 MG FILM PACKET SL SCH (10:00)
[2025-02-09] MEDS: BUPRENORPHINE HCL 450 MCG FILM BC SCH (05:45)
[2025-02-09] MEDS: IBUPROFEN 600 MG TABLET (FP) PO PRN (07:49)
[2025-02-09 09:03] VITALS: BP 121/84; PULSE 62; RESP 15; TEMP 97.1
[2025-02-09] MEDS ORDERED: BUPRENORPHINE/NALOXONE 8 MG/2 MG FILM PACKET SL SCH (10:00)
[2025-02-10] MEDS ORDERED: BUPRENORPHINE/NALOXONE 2 MG/0.5 MG FILM PACKET SL ONE (06:00)
[2025-02-10] MEDS ORDERED: BUPRENORPHINE/NALOXONE 8 MG/2 MG FILM PACKET SL SCH (10:00)
[2025-02-11] MEDS ORDERED: BUPRENORPHINE/NALOXONE 2 MG/0.5 MG FILM PACKET SL SCH (06:00)
[2025-02-12] MEDS ORDERED: BUPRENORPHINE/NALOXONE 4 MG/1 MG FILM PACKET SL SCH (06:00)
[2025-02-13] MEDS ORDERED: BUPRENORPHINE/NALOXONE 8 MG/2 MG FILM PACKET SL SCH (06:00)
== END 2025-02-09 12:55 | disposition left against medical advice (07) | DRG 770 ==
LOC: YASAS 11:04 → Y6N 12:26
PROVIDERS: ADMIT Allergy & Immunology; ATTEND Counselor Addiction (Substance Use Disorder)
PROC: HZ2ZZZZ Detoxification Services for Substance Abuse Treatment (ICD-10-PCS; principal; 2025-02-05)
DX: F10.230 Alcohol dependence with withdrawal, uncomplicated (principal); F13.230 Sedative, hypnotic or anxiolytic dependence with withdrawal, uncomplicated; F14.20 Cocaine dependence, uncomplicated; F12.20 Cannabis dependence, uncomplicated
CPT/HCPCS: 36415; 80053; 80305; 80307; 85027; 86780; 93005; 93010